=== PATIENT | male | born 2005 | race Caucasian/White ===

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

== ENCOUNTER 2024-08-23 13:56 | Emergency (ER) | payer BC ==
[2024-08-23] MEDS ORDERED: Lidocaine 2% with EPINEPHrine 1:100,000 20 ML MDV INFILT ONE (13:57)
[2024-08-23 14:06] VITALS: BP 138/94; PULSE 99
[2024-08-23] MEDS: Diphtheria,Pertussis(Acell),Tetanus Vaccine 0.5 ML Syringe IM ONE (14:28)
[2024-08-23] MEDS: Cephalexin 500 MG Cap PO ONE (14:28)
== END 2024-08-23 14:37 | disposition home or self-care (01) ==
LOC: FB.ED 13:56
DX: S61.411A Laceration without foreign body of right hand, initial encounter (principal); F17.210 Nicotine dependence, cigarettes, uncomplicated; Z79.899 Other long term (current) drug therapy; W26.0XXA Contact with knife, initial encounter; Z23 Encounter for immunization
CPT/HCPCS: 12001; 90471; 90715; 99282; A9270